=== PATIENT | male | born 1990 | race Caucasian/White ===

== ENCOUNTER 2020-10-22 18:28 | Emergency (ER) | payer OTHER ==
[2020-10-22] MEDS ORDERED: predniSONE 20 MG TAB ONE (19:30)
== END 2020-10-22 19:39 | disposition home or self-care (01) ==
LOC: CSHERS 18:28
DX: L27.0 Generalized skin eruption due to drugs and medicaments taken internally (principal); T38.0X5A Adverse effect of glucocorticoids and synthetic analogues, initial encounter; Z79.899 Other long term (current) drug therapy
CPT/HCPCS: 99282; J7512